=== PATIENT | female | born 1990 | race Caucasian/White ===

== ENCOUNTER 2021-07-28 20:36 | Emergency (ER) | payer OTHER, SELFPAY ==
--- NOTE | ~2021-07-28 | XR_ITS ---
EXAMINATION: XR chest 1V portable EXAM DATE: 07/28/2021 23:44 INDICATION: SOA/covid, PT IS 38 weeks . Double shielded. TECHNIQUE: Portable AP frontal chest x-ray was obtained. There is no prior study for comparison. FINDINGS: The lungs are clear. There are no pleural effusions. The cardiomediastinal silhouette is within normal limits. There is no pneumothorax suspected. The bones and soft tissues are unremarkab le. IMPRESSION: Normal chest x-ray exam. Reviewed, dictated and finalized at location A. ICATIONS CHEMIST IMPRESSION: Normal chest x-ray exam.
[2021-07-28 20:48] VITALS: BP 143/77; PULSE 104; RESP 18; TEMP 36.9; O2SAT 96
--- NOTE | 2021-07-28 23:34 | PC.NURSE ---
Called Blossom in OB to inform of order. She stated they will be over soon.
[2021-07-28 23:43] VITALS: BP 116/79; PULSE 92; RESP 17; O2SAT 97
[2021-07-28 23:44] VITALS: O2SAT 97
[2021-07-29] VITALS (8 sets, daily range): BP systolic 115; BP diastolic 72; PULSE 94; RESP 17; TEMP 36.6; O2SAT 97–100
--- NOTE | 2021-07-29 00:05 | PC.NURSE ---
OB in room with patient at this time.
[2021-07-29 00:24] LABS: Basophils Percent Auto 0.5 % (0.2-1.2); Eosinophils Percent Auto 0.9 % (0-4.4); Hematocrit 33.5 % (37.0-47.0); Hemoglobin 11.3 g/dL (12.0-15.0); Immature Granulocyte Absolute 0.01 K/mm3 (0.00-0.031); Immature Granulocyte Percent A 0.2 % (0-0.5); Lymphocytes Absolute Auto 1.15 K/mm3 (0.9-3.2); Lymphocytes Percent Auto 26.7 % (18.3-44.2); Mean Corpuscular HGB Conc 33.7 g/dl (32-36); Mean Corpuscular Hemoglobin 31.4 pg (26-34); Mean Corpuscular Volume 93.1 fl (80-100); Mean Platelet Volume 9.3 fl (7.4-10.4); Monocytes Absolute Auto 0.6 K/mm3 (0.1-0.6); Monocytes Percent Auto 13.5 % (2.6-8.5); Neutrophils Absolute Auto 2.5 K/mm3 (1.3-6.7); Neutrophils Percent Auto 58.2 % (45.5-73.1); Platelet Count Result 173 k/mm3 (150-375); Red Cell Distribution Width 13.7 % (11.5-14.5); White Blood Count 4.3 K/mm3 (4.5-10.0)
[2021-07-29 00:42] LABS: Alanine Aminotransferase 27 U/L (4-35); Albumin Level 3.6 g/dL (3.5-5.1); Alkaline Phosphatase 125 U/L (38-126); Anion Gap 4 mmol/L (8-16); Aspartate Amino Transferase 34 U/L (14-36); Bilirubin,Total 0.2 mg/dL (0.2-1.3); Blood Urea Nitrogen 8 mg/dL (7-17); Calcium 9.3 mg/dL (8.4-10.2); Carbon Dioxide 21 mmol/L (22-30); Chloride 105 mmol/L (98-107); Estimated CRCL calculation 171 ml/min; Estimated Glomerular Filt Rate > 60; Glucose 90 mg/dL (65-110); Potassium 3.6 mmol/L (3.4-5.0); Sodium 130 mmol/L (137-145)
--- NOTE | 2021-07-29 01:30 | ED.SOB ---
HPI - SOB/Dyspnea General Chief Complaint: Shortness of Breath/Dyspnea Stated Complaint: 38 weeks , covid+ 07/27, short of breath Time Seen by Provider: 07/28/21 23:05 History of Present Illness HPI Narrative: Patient is a 30-year-old female who presents ER with concerns for shortness of breath. Recently diagnosed with COVID-19. She has been having cough and occasionally in between coughing fit she feels some mild shortness of breath. She is 38 weeks . She has been feeling her baby move. No leakage of fluid or vaginal bleeding. Referred here by her OB for an NST and further evaluation. She is unvaccinated. Related Data Home Medications Medication Instructions Recorded Confirmed [id number] fum-folic ac-om3 pkg PO 07/28/21 [Daily ] Allergies Allergy/AdvReac Type Severity Reaction Status Date / Time No Known Allergies Allergy Verified 07/28/21 23:45 Review of Systems Review of Systems: All systems reviewed & are unremarkable except as noted in HPI and below Constitutional: Constitutional: Reports chills, Reports fever(s) and Reports weakness ENT: Reports nasal congestion and Denies sore throat Cardiovascular: Cardiovascular: Denies chest pain, Denies rapid heart rate and Denies radiating jaw, neck or arm pain Respiratory: Respiratory: Reports cough and Reports dyspnea Gastrointestinal: Gastrointestinal: Denies abdominal pain, Denies nausea and Denies vomiting Genitourinary: Genitourinary: Denies abnormal vaginal bleeding, Denies nocturia, Denies dysuria and Denies vaginal discharge PMFSH Past Medical History Medical History (Updated 07/29/21 @ 01:34 by Preston Galvez MD) Healthy female adult Surgical History Surgical History (Updated 07/29/21 @ 01:31 by Preston Galvez MD) No history of previous surgery Family History Family History (Updated 06/23/18 @ 12:02 by DOCTOR UNKNOWN) Mother Hypertension Family history of malignant neoplasm of breast in first degree relative, Onset Age: 40 Other Family history of mental disorder Social History Social History Smoking status: Never smoker Exam Narrative: GENERAL: Well-appearing, well-nourished, and in no acute distress. HEAD: Normocephalic, atraumatic. CHEST: Clear to auscultation. No respiratory distress. HEART: Regular rate and rhythm. . Normal peripheral pulses. ABDOMEN: Gravid abdomen consistent with 38-week with movement noted. No tenderness. EXTREMITIES: Normal range of motion. No edema. SKIN: Warm, dry, no rash. NEURO: Alert and oriented x3. PSYCH: Normal mood and affect. Course Course Emergency Course: Normal NST. Unremarkable chest x-ray. Discharge home with albuterol. Vital Signs Vital signs: Vital Signs Temperature 98.4 F 07/28/21 20:48 Pulse Rate 104 H 07/28/21 20:48 Respiratory Rate 18 07/28/21 20:48 Blood Pressure 143/77 H 07/28/21 20:48 Pulse Oximetry 96 07/28/21 20:48 Temperature 98.4 F 07/28/21 20:48 Pulse Rate 92 07/28/21 23:43 Respiratory Rate 17 07/28/21 23:43 Blood Pressure 116/79 07/28/21 23:43 Pulse Oximetry 97 07/28/21 23:44 MDM - SOB/Dyspnea Lab Data Result diagrams: 07/29/21 00:13 07/29/21 00:13 Labs: Lab Results 07/29/21 07/29/21 Range/Units 00:13 00:13 WBC 4.3 L (4.5-10.0) K/mm3 RBC 3.60 L (4.2-5.4) M/mm3 Hgb 11.3 L (12.0-15.0) g/dL Hct 33.5 L (37.0-47.0) % MCV 93.1 (80-100) fl MCH 31.4 (26-34) pg MCHC 33.7 (32-36) g/dl RDW 13.7 (11.5-14.5) % Plt Count 173 (150-375) k/mm3 MPV 9.3 (7.4-10.4) fl Immature Gran % (Auto) 0.2 (0-0.5) % Neut % (Auto) 58.2 (45.5-73.1) % Lymph % (Auto) 26.7 (18.3-44.2) % [place] % (Auto) 13.5 H (2.6-8.5) % Eos % (Auto) 0.9 (0-4.4) % Baso % (Auto) 0.5 (0.2-1.2) % Lymph # (Auto) 1.15 (0.9-3.2) K/mm3 [place] # (Auto) 0.6 (0.1-0.6) K/mm3 Eos # (Auto) 0.0 (0-0.3) K/m
--- NOTE | 2021-07-29 07:31 | PC.NURSE ---
Addendum entered by Yessy Simmons RN 07/29/21 07:35: Was a patient on 07/28 at 2352 Original Note: Pt was in ED and had an NST done by Blossom Chan RN- FHT's 130's and was reactive. Irregular contractions. Dr grimm was OB for patient.
== END 2021-07-29 02:04 | disposition home or self-care (01) ==
PROVIDERS: Emergency Provider Emergency Medicine
DX: O98.513 Other viral diseases complicating pregnancy, third trimester (principal); U07.1 COVID-19; Z3A.38 38 weeks gestation of pregnancy
CPT/HCPCS: 36415; 71045; 80053; 85025; 99283

== ENCOUNTER 2021-08-07 10:12 | Inpatient (IN) | payer OTHER, SELFPAY ==
[2021-08-07] VITALS (58 sets, daily range): BP systolic 99–149; BP diastolic 43–90; PULSE 64–108; RESP 16; TEMP 36.6–37.6; O2SAT 97–100; BMI 27.5
[2021-08-07] MEDS: LACTATED RINGERS 1,000 ML 999 ML (10:39)
--- NOTE | 2021-08-07 10:40 | P.PNAN_ITS ---
Anes - Eval Pre Procedure Date/Time: 08/07/21 10:40 Pre Op Diagnosis: Labor Patient Data Age: 30 Gender: F Height: Weight: Allergies Allergy/AdvReac Type Severity Reaction Status Date / Time No Known Allergies Allergy Verified 07/28/21 23:45 Home Medications Medication Instructions Recorded Confirmed Type -xldj fum-folic ac-om3 pkg PO 07/28/21 History [Daily ] albuterol sulfate 4 puff INHALATION QID PRN #8 gm 07/29/21 Rx Patient hx anesthesia problems: none Family hx anesthesia problems: none Results Review: All pre-operative results and documents have been reviewed as part of the pre-operative evaluation. [facility] Past Medical History Medical History Healthy female adult Surgical History Surgical History No history of previous surgery Family History Family History Mother Family history of malignant neoplasm of breast in first degree relative, Onset Age: 40 Hypertension Sibling Hypertension Grandparent Heart disease Family history of mental disorder Father Pulmonary embolism Other Patient's father is Social History Social History Smoking status: Never smoker Substance use: never Spiritual care concerns: No Exam Day of Procedure 08/07/21 10:40 Patient weight: normal Heart: regular rate and rhythm Lungs: clear to auscultation Airway: Mallampati scale class II Neurological: alert and oriented
[2021-08-07 10:57] LABS: Basophils Percent Auto 0.1 % (0.2-1.2); Eosinophils Absolute Auto 0.1 K/mm3 (0-0.3); Eosinophils Percent Auto 0.8 % (0-4.4); Hematocrit 39.7 % (37.0-47.0); Hemoglobin 13.6 g/dL (12.0-15.0); Immature Granulocyte Absolute 0.04 K/mm3 (0.00-0.031); Immature Granulocyte Percent A 0.5 % (0-0.5); Lymphocytes Absolute Auto 2.35 K/mm3 (0.9-3.2); Lymphocytes Percent Auto 27.4 % (18.3-44.2); Mean Corpuscular HGB Conc 34.3 g/dl (32-36); Mean Corpuscular Hemoglobin 31.2 pg (26-34); Mean Corpuscular Volume 91.1 fl (80-100); Monocytes Absolute Auto 0.5 K/mm3 (0.1-0.6); Monocytes Percent Auto 5.3 % (2.6-8.5); Neutrophils Absolute Auto 5.7 K/mm3 (1.3-6.7); Neutrophils Percent Auto 65.9 % (45.5-73.1); Platelet Count Result 216 k/mm3 (150-375); Red Blood Count 4.36 M/mm3 (4.2-5.4); Red Cell Distribution Width 13.2 % (11.5-14.5); White Blood Count 8.6 K/mm3 (4.5-10.0)
[2021-08-07] MEDS: LACTATED RINGERS 1,000 ML 125 ML IV CONT (11:41)
[2021-08-07] MEDS: OXYTOCIN 30 UNITS/NS 500 ML 30 UNITS/500 ML BAG 999 UNITS IV CONT (12:19)
--- NOTE | 2021-08-07 13:17 | WPDOBADMIT ---
Obstetrics - Admit Note Admission Note: record reviewed. Additions to the history and/or subsequent changes in the physical findings follow. 30 y/o at 39 4/7 weeks here with contractions. GBS neg. More comfortable with epidural. AVSS NST reactive TOCO: contractions every 2-4 min ABD soft, nontender, gravid, vertex EXT nontender Cervix 7/80/-1. AROM with clear fluid. Vertex. A: IUP at term with labor. P: Anticipate .
--- NOTE | 2021-08-07 16:52 | PM.OBPNLAB ---
Pain Control Date/time seen: 08/07/21 16:52 Comments: Pain under good control. Pelvic Exam Dilation (cm): 10 Effacement (%): 100 station: +1 Contractions Contraction frequency: 3 Contraction pattern: Regular Contraction intensity: Strong/Firm Status status: Category l Assessment and Plan Comments: Begin pushing.
--- NOTE | 2021-08-07 17:29 | P.PCNOB_ITS ---
OB - Delivery Note Procedure Delivery date: 08/07/21 Procedure: Induction method: none Delivery monitor: external FHT and external uterine Route of delivery: Laceration Description: Perineal - 2nd Degree Delivery repair: vicryl (3-0) Specimen: Yes (cord blood) Quantitative Blood Loss (ml): 145 Anesthesia type: Epidural Disposition: PACU Complications: None Narrative: 30 y/o at 39 4/7 weeks gestation who presented to the hospital with complaint of contractions. Labor was diagnosed. She received an epidural for pain control. Amniotomy was performed with return of clear fluid. Her labor progressed and her cervix dilated completely. She pushed with good effort and delivered the infant's head to the perineum, followed by the body. The nose and mouth were bulb suctioned. After a delay, the cord was clamped and cut. The infant was handed off the field. Cord blood was collected. The placenta delivered spontaneously and was grossly normal in appearance. The usual 3 vessel cord was noted. A second degree midline perineal laceration was sustained. This was reapproximated using 3 0 Vicryl in the usual layered fashion. Excellent hemostasis resulted as did excellent reapproximation of the normal anatomy. Needle and instrument counts were correct. The patient was taken to recovery room in stable condition. The went to the nursery in stable condition. I was present and scrubbed for the entire delivery. [place] Baby Date of : 08/07/21 Time of : 17:04 Weeks of gestation at delivery: 39 Infant gender: Male Weight (pounds): 7 Weight (ounces): 8 presentation: vertex position: Right Occiput Anterior Placenta delivery description: Spontaneous and Normal Configuration cord vessel description: 3 Vessels, Nuchal Cord and Delayed Cord Clamping score one minute: 8 score five minutes: 8
--- NOTE | 2021-08-07 17:32 | P.DS_ITS ---
DS: Admitting Diagnosis Discharge Date 08/08/21 Admitting Diagnosis IUP at 39 4/7 weeks Labor DS: Discharge Diagnosis Discharge Diagnosis (1) (normal spontaneous vaginal delivery): Code(s): O80 - Encounter for full-term uncomplicated delivery Status: Acute OB - DS: Summary OB Procedures : None OB Procedures Intrapartum: Spontaneous Vag Delivery OB Procedures: : None DS: Data Data Completed and Pending Labs on day of discharge: Labs from last 24 hours 08/07/21 08/07/21 08/07/21 10:48 10:48 10:48 WBC 8.6 RBC 4.36 Hgb 13.6 Hct 39.7 MCV 91.1 MCH 31.2 MCHC 34.3 RDW 13.2 Plt Count 216 MPV 10.0 Immature Gran % (Auto) 0.5 Neut % (Auto) 65.9 Lymph % (Auto) 27.4 [place] % (Auto) 5.3 Eos % (Auto) 0.8 Baso % (Auto) 0.1 L Lymph # (Auto) 2.35 [place] # (Auto) 0.5 Eos # (Auto) 0.1 Baso # (Auto) 0.0 Abs Immat Gran (auto) 0.04 H Absolute Neuts (auto) 5.7 Absolute Nucleated RBC 0.0 Nucleated RBC % 0.0 RPR Pending Blood Type A Positive Antibody Screen Positive Antibody Identification Pending Antigen Identification Pending LUCA, IgG Interpret Not Performed LUCA, Poly Interpret Neg LUCA, Complement Interp Not Performed Discharge Plan Discharge Attending physician on discharge: Austin Moore Discharging Clinician: Austin Moore Patient Disposition: Home, Self-Care Activity: pelvic rest Diet: regular Discharge Instructions: Call or return if temperature above 100.4? F, increased abdominal pain, increased vaginal bleeding or any new problems. Stand Alone Forms: General Discharge Information Follow-up/Referrals: Austin Moore MD [Physician] - 6 Weeks Discharge Medications: New ibuprofen 600 mg tablet 600 mg PO Q6H PRN (Reason: cramps) Qty: 30 RF: 0 Continued Daily 28-800-440 mg-mcg-mg Combo Pack PO RF: 0 albuterol sulfate 90 mcg/actuation HFA aerosol inhaler 4 puff INHALATION QID PRN (Reason: shortness of breath or wheezing) Qty: 8 RF: 0 Date of admission: 08/07/21 10:12 Primary Care Provider: PHYSICIAN,AIRCRAFT STRUCTURAL DESIGN ENGINEER Admitting Provider: Austin Moore Attending physician on admission: Austin Moore Condition: Stable
[2021-08-07] MEDS: IBUPROFEN 600 MG TABLET PO (20:21)
--- NOTE | 2021-08-07 20:25 | OBPPTRN ---
Patient transferred to post room #283 via wheelchair. Support person present. Oriented to unit, room, information board, rooming in, admission packet and security measures. Patient verbalizes understanding.
[2021-08-07] MEDS: ACETAMINOPHEN 325 MG TABLET 650 MG PO (22:28)
[2021-08-08 00:35] VITALS: BP 109/71; PULSE 76; RESP 16; TEMP 36.6
[2021-08-08] MEDS: IBUPROFEN 600 MG TABLET PO ×3 (02:16→17:31)
[2021-08-08 04:30] VITALS: BP 114/72; PULSE 90; RESP 16; TEMP 36.9
[2021-08-08 04:56] LABS: Hematocrit 30.3 % (37.0-47.0); Hemoglobin 10.4 g/dL (12.0-15.0)
[2021-08-08] MEDS: ACETAMINOPHEN 325 MG TABLET 650 MG PO (07:07)
[2021-08-08 09:00] VITALS: BP 115/65; PULSE 68; RESP 16; TEMP 36.2
[2021-08-08] MEDS: MULTIVIT/MIN/PREN/FOL AC/IRON TABLET 1 TAB PO (09:04)
--- NOTE | 2021-08-08 10:48 | WPDANLDPN2 ---
Anes-Prog Note L&D Date/Time: 08/08/21 10:48 Comfortable throughout: labor and delivery Neuraxial method: epidural Epidural/Spinal procedure site: clean & non-tender Neuro status: Neuro function grossly intact. Cardiovascular status: normal Respiratory status: normal Airway patency: baseline Mental status: baseline Post-Op hydration status: normal Vital Signs: Last Vital Signs Temp 36.2 C L 08/08/21 09:00 Pulse 68 08/08/21 09:00 Resp 16 08/08/21 09:00 BP 115/65 08/08/21 09:00 Pulse Ox 100 08/07/21 13:08 Pain score (VAS): 08/12 I/O: Intake & Output 08/07/21 08/08/21 08/08/21 23:59 07:59 15:59 Output Total 45 Balance -45 Post-procedural complaints: none Patient feedback: Patient satisfied with anesthetic care.
--- NOTE | 2021-08-08 12:17 | PC.NURSE ---
Patient viewed the discharge video Mother & Baby Care, The First Two Weeks online. Patient was given the opportunity and encouraged to ask questions. Patient verbalized understanding of information shared and has been given the mother/baby guide for home reference.
--- NOTE | 2021-08-08 13:02 | PM.OBPNVD ---
OB - PN: Subj Subjective Date/time seen: 08/08/21 13:02 Narrative: Pain OK. Would like circumcision for son. Would like to go home. OB - PN: Obj Data Labs CBC & Chem 7: 08/08/21 04:31 Labs: Laboratory Results - last 24 hr 08/07/21 08/08/21 10:48 04:31 Hgb 10.4 L D Hct 30.3 L Blood Type A Positive Antibody Screen Negative Antibody Identification Cancelled Antigen Identification Cancelled LUCA, IgG Interpret Not Performed LUCA, Poly Interpret Neg LUCA, Complement Interp Not Performed OB - PN A/P Plan Comments: A: PPD#1, doing well. P: Reviewed circ. Home to f/u 6 weeks. Exam Psych: Other: AVSS ABD soft, nontender, fundus firm EXT nontender
[2021-08-08 13:45] VITALS: BP 112/64; PULSE 62; RESP 16; TEMP 36.1
[2021-08-08 13:58] LABS: Rapid Plasma Reagin Non-Reactive (NonReactive)
[2021-08-08] MEDS: TETANUS,DIPHTHERIA,AC PERTUSSIS ADULT (0.5 ML) BOOSTRIX IM (17:31)
[2021-08-09 08:41] VITALS: BP 117/72; PULSE 73; RESP 20; TEMP 36.9; O2SAT 100
== END 2021-08-08 19:02 | disposition home or self-care (01) | DRG 807 ==
LOC: ANHLDR 17:33 → ANHOB2 20:29
PROVIDERS: Admitting Provider Obstetrics & Gynecology; Visit Provider Obstetrics & Gynecology
DX: O69.81X0 Labor and delivery complicated by cord around neck, without compression, not applicable or unspecified (principal); Z37.0 Single live birth; O70.1 Second degree perineal laceration during delivery; Z3A.39 39 weeks gestation of pregnancy
CPT/HCPCS: 36415; 85014; 85018; 85025; 86592; 86850; 86870; 86880; 86900; 86901; 86902; 86971; 90715; A9270; J2590; J2795; J7120

== ENCOUNTER 2024-09-06 13:20 | Emergency (ER) | payer OTHER, SELFPAY ==
[2024-09-06 14:32] VITALS: BP 150/75; PULSE 75; RESP 16; TEMP 36.3; O2SAT 100
--- NOTE | 2024-09-06 14:33 | ED_ITS ---
HPI - URI/Sore Throat General Chief Complaint: Upper Respiratory Infection Stated Complaint: SINUS CONGESTION/EARACHE/HEADACHE/VERTIGO Time Seen by Provider: 09/06/24 14:33 Source: patient Mode of arrival: ambulatory Limitations: no limitations History of Present Illness HPI Narrative: Aracelis is a 34-year-old female patient presenting to the clinic today with complaints of ear pain, sinus congestion, headache, cough, and dizziness x6 days. She reports had vertigo starting Thursday of last week and has developed the other symptoms over the last few days. MD elicited complaint: cough, rhinorrhea, nasal congestion and sinus pain Related Data Home Medications ?Medication ?Instructions ?Recorded ?Confirmed ?Last Taken ?Type vits 75-iron 28 mg-folic pkg PO 07/28/21 Unknown History acid 800 mcg-omega3 440 mg oral pack Allergies Allergy/AdvReac Type Severity Reaction Status Date / Time No Known Allergies Allergy Verified 07/28/21 23:45 Review of Systems Review of Systems: Pertinent positives per HPI. Patient denies any fever, chills, rash, visual changes, shortness of breath, chest pain, palpitations, nausea, vomiting, diarrhea, constipation, abdominal pain, or any urinary issues. PMFSH Past Medical History Medical History Healthy female adult Surgical History Surgical History No history of previous surgery Family History Family History Mother Family history of malignant neoplasm of breast in first degree relative, Onset Age: 40 Hypertension Sibling Hypertension Grandparent Heart disease Family history of mental disorder Father Pulmonary embolism Other Patient's father is Social History Social History Smoking status: Never smoker Substance use: never Spiritual care concerns: No Comments At the time of my signature, I reviewed and agree with the nursing past medical, surgical, social, and family history. There is no relevant family history pertinent to the patient complaint. Exam Narrative: General: Well-developed, well nourished, in no apparent distress Head: Normocephalic, atraumatic Eyes: Pupils equally round and reactive to light bilaterally, EOM intact, sclera and conjunctive clear, no discharge, lids normal Ears: TMs intact and congested, ear canals clear, no drainage, grossly hearing normal. Nose: Nares patent, clear discharge, no inflammation, no sinus tenderness. Mouth: Oral pharynx without lesions or masses, good dentition, MMM. Postnasal drip Neck: Supple, trachea midline, no enlargement of anterior or posterior cervical nodes, no thyroid masses or goiter palpable. Cardio: Regular rate and rhythm, s1 and s2 normal, no murmur appreciated. Resp: Clear to auscultation bilaterally, no rhonchi, rales, wheezing or rubs Course Course Emergency Course: Portions of this record may have been created with voice recognition software. Level of Care: Express Care Visit Vital Signs Vital signs: Vital Signs Temperature 36.3 C L 09/06/24 14:32 Pulse Rate 75 09/06/24 14:32 Respiratory Rate 16 09/06/24 14:32 Blood Pressure 150/75 H 09/06/24 14:32 Pulse Oximetry 100 09/06/24 14:32 Temperature 36.3 C L 09/06/24 14:32 Pulse Rate 75 09/06/24 14:32 Respiratory Rate 16 09/06/24 14:32 Blood Pressure 150/75 H 09/06/24 14:32 Pulse Oximetry 100 09/06/24 14:32 Vital signs reviewed MDM - URI/Sore Throat MDM Narrative Medical decision making narrative: At the time of visit patient is resting comfortably on the exam table. Patient appears to be nontoxic. Labs: Influenza testing was positive in the clinic today. Plan: I suspect patient has URI/sinusitis. Prescription for prednisone was sent to the pharmacy. Supportive measures were discussed with the patient and they voiced understanding discharge instructions and agrees to treatment plan. Return precautions reviewed Differential Diagnosis Differential diagnosis: Likely upper respiratory infection, otitis media, sinusitis, viral infection, bronchitis, influenza, pharyngitis and other Discharge Plan Discharge Clinical Impression: Upper respiratory infection with cough and congestion, Sinusitis Patient Disposition: Home, Self-Care Condition: Stable Instructions: Antibiotic Form, Sinusitis (ED), Viral Syndrome (ED) Additional Instructions: Take prescription medications only as prescribed -prednisone Increase fluids and stay well hydrated Tylenol/motrin for pain/fever Flonase and OTC antihistamines as directed Vicks vapor rub to open sinuses Sinus rinses for congestion Cepacol spray, cough drops, throat lozenges, warm tea with honey/lemon, gargle salt water to soothe throat BRAT diet for diarrhea Clear liquids x 24 hours then advance as tolerated for nausea/vomiting Go to the ED if you develop a worsening in your condition- high fever not controlled by Tylenol or Motrin, dehydration, weakness, lethargy, shortness of breath, or chest pain. Follow up with your PCP in 3-5 days if symptoms persist. Patient Language: Tuvaluan Prescriptions: New prednisone 20 mg tablet 40 mg PO DAILY 5 Days Qty: 10 0RF No Action [id number] fum-folic ac-om3 28-800-440 mg-mcg-mg Combo Pack PO albuterol sulfate 90 mcg/actuation HFA aerosol inhaler 4 puff INHALATION QID PRN (Reason: shortness of breath or wheezing) Qty: 8 0RF ibuprofen 600 mg tablet 600 mg PO Q6H PRN (Reason: cramps) Qty: 30 0RF Follow-up/Referrals: PHYSICIAN,MINING PLANT OPERATOR [Primary Care Provider] - Time of Disposition: 15:09 Quality NIHSS Nursing Documentation ED NIHSS nursing documentation: reviewed/agree
[2024-09-06 16:11] LABS: EDINFLUASCREEN Negative (Negative); EDINFLUBSCREEN Negative (Negative)
== END 2024-09-06 15:14 | disposition home or self-care (01) ==
PROVIDERS: Emergency Provider Nurse Practitioner Family
DX: J06.9 Acute upper respiratory infection, unspecified (principal); R05.9 Cough, unspecified; J32.9 Chronic sinusitis, unspecified
CPT/HCPCS: 87804; 99213; G0463

== ENCOUNTER 2025-05-15 09:49 | Outpatient (CLI) | payer OTHER, SELFPAY ==
[2025-05-15 10:31] LABS: Alanine Aminotransferase 39 U/L (6-35); Albumin Level 4.3 g/dL (3.5-5.1); Alkaline Phosphatase 53 U/L (38-126); Anion Gap 7 mmol/L (4-12); Aspartate Amino Transferase 32 U/L (14-36); Bilirubin,Total 0.3 mg/dL (0.2-1.3); Blood Urea Nitrogen 13 mg/dL (7-17); Calcium 9.4 mg/dL (8.4-10.2); Carbon Dioxide 27 mmol/L (22-30); Chloride 104 mmol/L (98-107); Estimated Glomerular Filt Rate > 60; Glucose 106 mg/dL (65-110); Potassium 4.4 mmol/L (3.4-5.0); Sodium 138 mmol/L (137-145); Total Protein 7.5 g/dL (6.3-8.2)
--- OUTSIDE RECORDS SUMMARY | 2025-05-15 10:38 | XMS_ITS | Clinical Summary ---
Author Organization [facility] Address [address] [place] [address] Care Team Providers Care Landscape Crew Leader Name Role Phone Unavailable Primary Care Provider Unavailabl e Source Comments [facility],non-owned Affiliates and Associated Physician Practices is amultiple site organization consisting of ambulatory clinics and hospital sitesin [place], [place], [place] and [place]. This disclosure is being madepursuant to the Care Everywhere program and may not contain all information available regarding this patient. Last updated 18.[facility] Allergies No known active allergies Medications * Be aware that medications may not be up to date on this document. Alwaysverify current medications with the patient. sucralfate (CARAFATE) 1 GM tablet Take 1 g by mouth Active MV-Min-Fe Fum-FA-DHA ( 1 PO) Acti ve Active Problems Problem Noted Date Diagnosed Date Positive MAMI (antinuclear antibody) 06/03/2021 Estimated Date of Delivery Comme nts Yes 08/10/2021 Family History Medical History Relation Name Comments Pulmonary Embolism Father Cancer - Breast Mother Relation Name Status Comments Father Mother Alive Social History Tobacco Use Types Packs/Day Years Used Date Smoking Tobacco: Never Smokeless Tobacco: Never Alcohol Use Standard Drinks/Week Comments Not Currently 0 (1 standard drink = 0.6 oz pur e alcohol) Estimated Date of Delivery Comme nts Yes 08/10/2021 Sex and Gender Information Value Date Recorded Sex Assigned at Not on file Legal Sex Female 12:01 PM CDT Gender Identity Not on file Sexual Orientation Not on file Last Filed Vital Signs Vital Sign Reading Time Taken Comments Blood Pressure 100/60 06/03/2021 4:02 PM CDT Pulse 91 06/03/2021 4:02 PM CDT Temperature 36.1 C (97 F) 06/03/2021 4:02 PM CDT Respiratory Rate 16 06/03/2021 4:02 PM CDT Oxygen Saturation 98% 06/03/2021 4:02 PM CDT Inhaled Oxygen Concentration - - Weight 72 kg (158 lb 12.8 oz) 06/03/2021 4:02 PM CDT Height 165.1 cm (5' 5) 06/03/2021 4:02 PM CDT Body Mass Index 26.43 06/03/2021 4:02 PM CDT Plan of Treatment Health Maintenance Due Date Last Done Comments DTAP/TDAP/TD VACCINES (1 - Tdap) 2007 HEPATITIS B VACCINE (1 of 3 - 19+ 3-dose series) 2007 HPV VACCINE (1 - 3-dose SCDM series) 2015 OB-ONE HOUR GLUCOSE 05/04/2021 12/21/2020 OB-TDAP CURRENT 05/11/2021 01/27/2017 OB-RHOGAM INJECTION 05/18/2021 OB-GROUP B STREP SCREEN 07/06/2021 DEPRESSION SCREENING 08/03/2024 COVID-19 VACCINE (1 - 2023-2 5 season) 2025 INFLUENZA VACCINE (#1) 2025 ZOSTER VACCINE (1 of 2) 2038 Respiratory Syncytial Virus (RSV) Vaccine Pt: or over 60 yrs (1 - 1-dose 75+ series) 2063 HEPATITIS C SCREENING Completed 12/21/2020 , 12/21/2020 HIV SCREENING Completed 12/21/2020 HIB VACCINE Aged Out No longer eligi ble based on patient's age to complete this topic MENINGOCOCCAL (Group B) VACCINE SHARED DECISION-MAKING Aged Out No longer eligible based on patient's age to complete this topic MENINGOCOCCAL GROUPS A/C/Y/W VACCINE Aged Out No longer eligible b ased on patient's age to complete this topic PNEUMOCOCCAL VACCINE Aged Out No long er eligible based on patient's age to complete this topic Insurance [facility]
--- OUTSIDE RECORDS SUMMARY | 2025-05-15 10:38 | XMS_ITS | Clinical Summary ---
Author Organization [facility] Address [address] [place] [id number] Care Team Providers Care Distributed Generation Project Manager Name Role Phone None, Provider MD Primary Care Provider Unavaila ble Allergies No known active allergies Medications Vit-Fe Sulfate-FA ( MULTIVIT-IRON OR) Ac tive Social History Tobacco Use Types Packs/Day Years Used Date Smoking Tobacco: Never Smokeless Tobacco: Never Alcohol Use Standard Drinks/Week Comments Not Currently 0 (1 standard drink = 0.6 oz pur e alcohol) Estimated Date of Delivery Comme nts Yes 08/10/2020 Sex and Gender Information Value Date Recorded Sex Assigned at Not on file Legal Sex Female 2:34 PM CDT Gender Identity Not on file Sexual Orientation Not on file Last Filed Vital Signs Vital Sign Reading Time Taken Comments Blood Pressure 126/74 02/08/2021 10:55 PM CDT Pulse 72 02/08/2021 10:55 PM CDT Temperature 36.4 C (97.6 F) 02/08/2021 2:39 PM CDT Respiratory Rate 16 02/08/2021 10:5 5 PM CDT Oxygen Saturation 100% 02/08/2021 10: 55 PM CDT Inhaled Oxygen Concentration - - Weight 64.3 kg (141 lb 12.1 oz) 02/08/2021 2:39 PM CDT Height 165.1 cm (5' 5) 02/08/2021 2:39 PM CDT Body Mass Index 23.59 02/08/2021 2:39 PM CDT Plan of Treatment Health Maintenance Due Date Last Done Comments Annual Physical 1991 Hepatitis B Vaccines (1 of 3 - 19+ 3-dose series) 2007 HPV Vaccines (1 - 3-dose SCD M series) 2015 Cervical Cancer Screening Pa p Smear (Age 30 to 64) Every 3 Years 12/22/2023 12/21/2020 COVID-19 Vaccine (1 - 2023-2 5 season) 2025 Influenza Adult (#1) 2025 Cervical Cancer Screening Pa p with HPV Testing (Age 30 to 64) Every 5 Years 12/21/2025 12/21/2020 Cervical Cancer Screening wi th HPV 12/21/2025 DTaP, Tdap and Td Vaccines ( 2 - Td or Tdap) 01/27/2027 01/27/2017 RSV Immunization or 60+ Years (1 - 1-dose 75+ series) 2063 Hepatitis C Completed 12/21/2020, 12/21/2020 Meningococcal B Vaccine Aged Out No l onger eligible based on patient's age to complete this topic Meningococcal Vaccine Aged Out No gaston jelly eligible based on patient's age to complete this topic Pneumococcal Vaccine: Pediatrics (0 to 5 Years) and At-Risk Patients (6 to 49 Years) Aged Out No longer eligible b ased on patient's age to complete this topic RSV Immunizations Under 20 Months Aged Out No longer eligible b ased on patient's age to complete this topic Insurance [facility] Care Teams Distributed Generation Project Manager Relationship Specialty Start Date End Date None, Provider, PCP - General 02/08/21
[2025-05-15 10:58] LABS: Thyroid Stimulating Hormone Reflex 2.030 uIU/mL (0.465-4.68)
[2025-05-16 07:09] LABS: FSH 6.9 mIU/mL (.)
[2025-05-18 02:07] LABS: Free Testosterone (Direct) 2.5 pg/mL (0.0-4.2)
[2025-05-19 12:09] LABS: Estradiol, Sensitive 27.2 pg/mL (.)
== END 2025-05-15 09:50 | disposition home or self-care (01) ==
LOC: ANHLAB 09:51
PROVIDERS: Visit Provider Obstetrics & Gynecology
DX: N91.5 Oligomenorrhea, unspecified (principal)
CPT/HCPCS: 36415; 80053; 82627; 82670; 83001; 84144; 84146; 84402; 84403; 84443